=== PATIENT | male | born 1995 | race Caucasian/White ===

== ENCOUNTER → 2016-09-21 | Outpatient (CLI) | payer OTHER | LOC: EXRD 10:18 | DX: M25.562 Pain in left knee (principal) | CPT/HCPCS: 73560 ==

== ENCOUNTER → 2020-10-03 | Outpatient (CLI) | payer OTHER ==
[~2020-10-03] MED LIST: BENADRYL 50MG C50 MG PO; EPIPEN 2-P0.3 MG/0.3 INJ; PEPCID20 MG PO; PREDNISONE20 MG PO
== END ==
LOC: KOH-I 15:41
DX: S93.402A Sprain of unspecified ligament of left ankle, initial encounter (principal); X58.XXXA Exposure to other specified factors, initial encounter
CPT/HCPCS: 73610; 73630

== ENCOUNTER 2020-10-04 18:16 | Emergency (ER) | payer OTHER ==
[2020-10-04] MEDS ORDERED: BENADRYL 50MG C50 MG PO (20:11)
[2020-10-04] MEDS ORDERED: EPIPEN 2-P0.3 MG/0.3 INJ (20:11)
[2020-10-04] MEDS ORDERED: PREDNISONE20 MG PO (20:11)
[2020-10-04] MEDS ORDERED: PEPCID20 MG PO (20:11)
== END 2020-10-04 20:17 | disposition home or self-care (01) ==
LOC: ER1 18:16
DX: T78.1XXA Other adverse food reactions, not elsewhere classified, initial encounter (principal); R21 Rash and other nonspecific skin eruption; R60.9 Edema, unspecified; Z91.013 Allergy to seafood; Z91.041 Radiographic dye allergy status
CPT/HCPCS: 96372; 99282; J2930